=== PATIENT | female | born 1965 | race African-American/Black ===

== ENCOUNTER → 2016-06-29 | Outpatient (CLI) | payer OTHER ==
[~2016-06-29] MED LIST: ALEVE220 M2 PO; FLONASE ALLERG9.9 ML BOTH NARES; INDOCIN50 MG PO; LORTAB 5-325 M1 EACH PO
== END | disposition home or self-care (01) ==
LOC: RAD 12:48
DX: K80.20 Calculus of gallbladder without cholecystitis without obstruction (principal)
CPT/HCPCS: 76705

== ENCOUNTER 2016-07-19 05:30 | Day surgery (SDC) | payer OTHER ==
[~2016-07-19] VITALS: Ht 165.1 cm; Wt 106.1 kg
[2016-07-19 06:10] VITALS: BP 144/89
[2016-07-19 07:22] LABS: MCH 20.1 PG (29.0-34.0); MCHC 29.7 G/DL (30.0-36.0); MCV 67.5 FL (83-99); RBC DIS.WIDTH-CV 29.8 % (11.8-14.6); RBC DIS.WIDTH-SD 69.7 % (39-53); RED BLOOD COUNT 5.48 M/uL (3.80-5.20); WHITE BLOOD COUNT 5.9 K/uL (4.1-10.2)
[2016-07-19 08:11] LABS: PLATELET COUNT 200 K/uL (156-360)
[2016-07-19] MEDS ORDERED: PERCOCET 5/31 TABLET PO (10:48)
[2016-07-19] MEDS ORDERED: COLACE100 MG PO (10:48)
[2016-07-19 12:18] VITALS: BP 130/79
[2016-07-19 13:39] VITALS: BP 133/68
== END 2016-07-19 13:40 | disposition home or self-care (01) ==
LOC: SDC 05:30
PROVIDERS: Surgery
PROC: 0FT44ZZ Resection of Gallbladder, Percutaneous Endoscopic Approach (ICD-10-PCS; principal; 2016-07-19)
DX: K80.10 Calculus of gallbladder with chronic cholecystitis without obstruction (principal); M54.9 Dorsalgia, unspecified; R03.0 Elevated blood-pressure reading, without diagnosis of hypertension; Z88.0 Allergy status to penicillin
CPT/HCPCS: 85027; 88304; J0330; J1100; J1170; J1885; J2405; J2710; J3010

== ENCOUNTER → 2016-08-16 | Outpatient (CLI) | payer OTHER ==
[~2016-08-16] MED LIST changes: +COLACE100 MG PO; +PERCOCET 5/31 TABLET PO
== END | disposition home or self-care (01) ==
LOC: RAD 16:24
DX: M79.652 Pain in left thigh (principal); Z98.890 Other specified postprocedural states
CPT/HCPCS: 93971

== ENCOUNTER → 2016-10-14 | Outpatient (CLI) | payer OTHER ==
[~2016-10-14] MED LIST changes: +ERGOCALCIF50000 UNIT PO
== END | disposition home or self-care (01) ==
LOC: RAD 12:14
DX: N20.2 Calculus of kidney with calculus of ureter (principal); N13.4 Hydroureter; N83.202 Unspecified ovarian cyst, left side; N28.89 Other specified disorders of kidney and ureter
CPT/HCPCS: 74176